=== PATIENT | male | born 1980 | race Hispanic/Latino ===

== ENCOUNTER 2021-01-27 11:33 | Emergency (ER) | payer SELFPAY ==
[~2021-01-27] VITALS: Ht 182.9 cm; Wt 99.8 kg
[2021-01-27] MEDS ORDERED: LISINOPRIL20 MG PO (11:48)
--- OUTSIDE RECORDS SUMMARY | 2021-01-27 13:06 | XMS ---
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 Carmencita VISIT COUNT (12 MO.) [address] TOTAL 2 NOTE: Visits indicate total known visits. ED/UCC VISIT TRACKING (12 MO.) 01/27/2021 11:35 [facility] TYPE: Emergency COMPLAINT: - ELEVATED B/P 01/06/2021 00:33 [facility] OR TYPE: Emergency DIAGNOSES: - HIGH BLOOD PRESSURE - Other migraine, not intractable, without status migrainosus INPATIENT VISIT TRACKING (12 MO.) No inpatient visits to display in this time frame [email or web address]
== END 2021-01-27 12:59 | disposition home or self-care (01) ==
LOC: ED 11:33
DX: I10 Essential (primary) hypertension (principal); Z79.899 Other long term (current) drug therapy
CPT/HCPCS: 99283